=== PATIENT | female | born 1985 | race African-American/Black ===

== ENCOUNTER 2022-09-26 20:09 | Emergency (ER) | payer OTHER ==
[~2022-09-26] VITALS: Ht 170.2 cm; Wt 79.4 kg
--- NOTE | 2022-09-26 20:38 | NUR ---
Laurie AOx4, able to express concerns. Patient c/o pain to left ankle. Discussed plan of care, pt verbalized agreement.
--- NOTE | 2022-09-26 21:11 | NUR ---
PT EVALUATED BY DR SOHA LOONEY
[2022-09-26] MEDS ORDERED: IBUPROFEN 400 MG TABLET ONE (21:17)
--- NOTE | 2022-09-26 21:19 | NUR ---
MEDICAL RECORD TRANSCRIBER AT PT'S BEDSIDE
[2022-09-26] MEDS ORDERED: IBUPROFEN 400 MG TABLET PO ONE (21:30)
[2022-09-26] MEDS ORDERED: HYDR-3980 PO (21:47)
[2022-09-26] MEDS ORDERED: HYDROCODONE/APAP 5/325MG TABLET ONE (21:59)
[2022-09-26] MEDS ORDERED: HYDROCODONE/APAP 5/325MG TABLET PO ONE (22:00)
--- NOTE | 2022-09-26 22:05 | NUR ---
Patient discharged to home in stable condition. RX Written and verbal after care instructions given. Patient verbalizes understanding of instruction.
[2022-09-26 22:08] VITALS: BP 137/91; TEMP 98.1; O2SAT 100
[2022-09-27] MEDS ORDERED: HYDR-4303 PO (16:10)
== END 2022-09-26 22:09 | disposition home or self-care (01) ==
LOC: ER 20:17
DX: S82.492A Other fracture of shaft of left fibula, initial encounter for closed fracture (principal); Z79.899 Other long term (current) drug therapy; W01.0XXA Fall on same level from slipping, tripping and stumbling without subsequent striking against object, initial encounter; Y93.89 Activity, other specified; Y92.89 Other specified places as the place of occurrence of the external cause; Y99.8 Other external cause status
CPT/HCPCS: 73610-TC